=== PATIENT | female | born 1960 | race Hispanic/Latino ===

== ENCOUNTER 2017-04-18 14:15 | Emergency (ER) | payer BC ==
[2017-04-18 14:44] VITALS: BP 105/79; PULSE 65; RESP 16; TEMP 96.9; O2SAT 100
[2017-04-18] MEDS ORDERED: Oxycodone/Acetaminophen 5/325 mg Tab PO STA (15:00)
[2017-04-18] MEDS ORDERED: Oxycodone/Acetaminophen 5/325 mg Tab ONE (15:03)
--- NOTE | 2017-04-18 15:18 | ED PDOC ---
Upper Extremity Pain/Injury Time Seen by Provider: 04/18/17 14:45 Chief Complaint (Nursing): Upper Extremity Problem/Injury Chief Complaint (Provider): shoulder pain History Per: Patient History/Exam Limitations: no limitations Onset/Duration Of Symptoms: Days (3 days ago) Current Symptoms Are (Timing): Still Present Additional Complaint(s): 56 y/o female presents to the ED complaining of left shoulder pain, onset of 3 days ago. Patient reports that the pain worsens with movement and denies of any respective trauma that could have triggered it, chest pain, or shortness of breath. Of note, patient states that she has taken some over the counter medicines like Motrin and Aleve, but experienced no relief. PCP: Mikey Reeves Past Medical History Reviewed: Historical Data, Nursing Documentation, Vital Signs Vital Signs: Last Vital Signs Temp 96.9 F L 04/18/17 14:42 Pulse 65 04/18/17 14:42 Resp 16 04/18/17 14:42 BP 105/79 04/18/17 14:42 Pulse Ox 100 04/18/17 14:42 - Medical History PMH: Bipolar Disorder, Hypothyroidism, Migraine Denies: Chronic Kidney Disease - Surgical History Surgical History: - Family History Family History: States: Unknown Family Hx - Social History Current smoker - smoking cessation education provided: No Ex-Smoker (has not smoked in the last 12 months): No Drugs: Denies - Immunization History Hx Tetanus Toxoid Vaccination: Yes (6 years ago) Hx Influenza Vaccination: Yes (2014) Hx Pneumococcal Vaccination: No - Home Medications Home Medications: Ambulatory Orders Medication Instructions Recorded DULoxetine [Cymbalta] 60 mg PO DAILY 12/23/15 Gabapentin Enacarbil [Horizant] 300 mg PO HS 12/23/15 Lamotrigine [Lamictal] 200 mg PO DAILY 12/23/15 Levothyroxine [Synthroid] 100 mcg PO DAILY 12/23/15 Quetiapine Fumarate [Seroquel] 800 mg PO HS 12/23/15 clonazePAM [Klonopin] 1 mg PO BID 12/23/15 Levofloxacin [Levaquin] 500 mg PO DAILY #7 tablet 12/27/15 Tramadol HCl [Ultram] 50 mg PO Q6 #90 tablet 12/27/15 Ibuprofen [Motrin] 600 mg PO Q6 #20 tab 04/18/17 oxyCODONE/Acetaminophen [Percocet 1 ea PO Q6 PRN #5 tab 04/18/17 5/325 mg Tab] - Allergies Allergies/Adverse Reactions: Allergies Allergy/AdvReac Type Severity Reaction Status Date / Time Penicillins Allergy RASH Verified 04/18/17 14:41 Review of Systems ROS Statement: Except As Marked, All Systems Reviewed And Found Negative Cardiovascular: Negative for: Chest Pain Respiratory: Negative for: Shortness of Breath Musculoskeletal: Positive for: Shoulder Pain (worsens with movement) Physical Exam - Reviewed Nursing Documentation Reviewed: Yes Vital Signs Reviewed: Yes - Physical Exam Appears: Positive for: Non-toxic, No Acute Distress Head Exam: Positive for: ATRAUMATIC Skin: Positive for: Normal Color, Warm Eye Exam: Positive for: Normal appearance Cardiovascular/Chest: Positive for: Regular Rate, Rhythm. Negative for: Murmur Respiratory: Positive for: Normal Breath Sounds. Negative for: Respiratory Distress Extremity: Positive for: Tenderness (tender upon palpation to the lateral aspect of the shoulder ). Negative for: Normal ROM (hindered range of motion due to pain from adduction of the shoulder) - ECG O2 Sat by Pulse Oximetry: 100 (RA) Pulse Ox Interpretation: Normal Medical Decision Making Medical Decision Making: Time: --15:00 Impression: --56 y/o female with atraumatic shoulder pain Plan: --ECG --Toradol 30 mg IM --OxyCodone/Acetaminophen --Left Shoulder X-ray Reassess CT IMPRESSION: Small simple glenohumeral joint effusion. Mild degenerative changes with minimal joint space narrowing. If symptoms persist recommend MRI. Pt educated on results and demonstrated full understanding Pt placed in shoulder sling for comfort, RICE therapy advised and Pt reports that she will follow up with ortho at [facility] Scribe Attestation: Documented by Giovanni Schumacher acting as a scribe for MARTELL Miller. Disposition - Clinical Impression Clinical Impression: Shoulder pain, Joint effusion, DJD (degenerative joint disease) - Patient ED Disposition Is Patient to be Admitted: No - Disposition Disposition: Routine/Home Disposition Time: 19:15 Condition: STABLE Prescriptions: Ibuprofen [Motrin] 600 mg PO Q6 #20 tab oxyCODONE/Acetaminophen [Percocet 5/325 mg Tab] 1 ea PO Q6 PRN #5 tab PRN Reason: Pain, Severe (8-10) Instructions: Arthralgia (ED) Forms: [facility] (Croatian)
--- NOTE | 2017-04-18 15:38 | RAD ---
PROCEDURE: Radiographs of the Left Shoulder HISTORY: pain COMPARISON: No prior. FINDINGS: BONES: No fracture. JOINTS: Glenohumeral and acromioclavicular joints preserved. SOFT TISSUES: Normal. OTHER FINDINGS: None. IMPRESSION: No demonstrated fracture or dislocation.
--- NOTE | 2017-04-18 19:07 | CT ---
PROCEDURE: CT left shoulder HISTORY: severe pain COMPARISON: TECHNIQUE: 2.5 mm axial acquisition and display. Coronal and sagittal reconstructions. Dose report (mGy-cm): 191.75. This CT exam was performed using one or more of the following dose reduction techniques: Automated exposure control, adjustment of the mA and/or kV according to patient size, and/or use of iterative reconstruction technique. FINDINGS: Glenohumeral degenerative changes. Preservation of the acromioclavicular joint. Moderate glenohumeral joint effusion. No scapular abnormalities identified. No visualize ribs findings. No underlying pulmonary abnormalities. IMPRESSION: No acute osseous or articular abnormalities. Glenohumeral degenerative change. Clinic humeral joint effusion. Concordant results (preliminary interpretation) provided by [facility]. Procedure Completed: 16:02 Preliminary ([facility]) Report: Dictated and Authenticated: 17:55 Final Interpretation: 19:05. April 18, 2017.
== END 2017-04-18 18:00 | disposition home or self-care (01) ==
LOC: H.ER 14:15
DX: M25.412 Effusion, left shoulder (principal); E03.9 Hypothyroidism, unspecified; F31.9 Bipolar disorder, unspecified; Z87.891 Personal history of nicotine dependence; Z88.0 Allergy status to penicillin
CPT/HCPCS: 73030; 73200; 96372; 99282; J1885

== ENCOUNTER 2017-05-09 19:15 | Emergency (ER) | payer BC ==
[2017-05-09 19:47] VITALS: BP 121/73; PULSE 63; RESP 16; TEMP 98; O2SAT 100
[2017-05-09] MEDS ORDERED: Oxycodone/Acetaminophen 5/325 mg Tab PO STA (19:58)
[2017-05-09] MEDS ORDERED: Lidocaine 5% Patch TD STA (19:58)
[2017-05-09] MEDS ORDERED: Lidocaine 5% Patch TD ONE (20:07)
[2017-05-09] MEDS ORDERED: Oxycodone/Acetaminophen 5/325 mg Tab ONE (20:09)
--- NOTE | 2017-05-09 20:24 | ED PDOC ---
Upper Extremity Pain/Injury Time Seen by Provider: 05/09/17 19:48 Chief Complaint (Nursing): Upper Extremity Problem/Injury Chief Complaint (Provider): Left Shoulder Pain History Per: Patient History/Exam Limitations: no limitations Onset/Duration Of Symptoms: Days Current Symptoms Are (Timing): Still Present Quality: "Pain" Exacerbating Factor(s): Movement Additional Complaint(s): 56 year old female presents to the ED complaining of left shoulder pain. The patient states that 2 weeks ago she injured her left shoulder while walking her dog. She reports that she was seen in this ED and told she might have a rotator cuff injury. The patient states that she is scheduled to see Dr. Duggan this week and is also schedules to have an MRI. She reports that she has been taking motrin and percocet that she was prescribed but states she does not have any more. Patient is requesting medication while in the ED. Denies chest pain, shortness of breath, numbness and tingling. PMD: Non CPH Provider Past Medical History Reviewed: Historical Data, Nursing Documentation, Vital Signs Vital Signs: Last Vital Signs Temp 98.0 F 05/09/17 19:46 Pulse 63 05/09/17 19:46 Resp 16 05/09/17 19:46 BP 121/73 05/09/17 19:46 Pulse Ox 100 05/09/17 19:46 - Medical History PMH: Bipolar Disorder, Hypothyroidism, Migraine Denies: Chronic Kidney Disease - Surgical History Surgical History: - Family History Family History: States: Unknown Family Hx - Social History Current smoker - smoking cessation education provided: No Ex-Smoker (has not smoked in the last 12 months): No Alcohol: None Drugs: Denies - Immunization History Hx Tetanus Toxoid Vaccination: Yes (6 years ago) Hx Influenza Vaccination: Yes (2014) Hx Pneumococcal Vaccination: No - Home Medications Home Medications: Ambulatory Orders Medication Instructions Recorded DULoxetine [Cymbalta] 60 mg PO DAILY 12/23/15 Gabapentin Enacarbil [Horizant] 300 mg PO HS 12/23/15 Lamotrigine [Lamictal] 200 mg PO DAILY 12/23/15 Levothyroxine [Synthroid] 100 mcg PO DAILY 12/23/15 Quetiapine Fumarate [Seroquel] 800 mg PO HS 12/23/15 clonazePAM [Klonopin] 1 mg PO BID 12/23/15 Levofloxacin [Levaquin] 500 mg PO DAILY #7 tablet 12/27/15 Tramadol HCl [Ultram] 50 mg PO Q6 #90 tablet 12/27/15 Ibuprofen [Motrin] 600 mg PO Q6 #20 tab 04/18/17 oxyCODONE/Acetaminophen [Percocet 1 ea PO Q6 PRN #5 tab 04/18/17 5/325 mg Tab] Lidocaine 5% [Lidoderm] 1 ea TD DAILY PRN #10 patch 05/09/17 Meloxicam [Mobic] 7.5 mg PO DAILY PRN #15 tab 05/09/17 - Allergies Allergies/Adverse Reactions: Allergies Allergy/AdvReac Type Severity Reaction Status Date / Time Penicillins Allergy RASH Verified 04/18/17 14:41 Review of Systems Cardiovascular: Negative for: Chest Pain Respiratory: Negative for: Shortness of Breath Musculoskeletal: Positive for: Shoulder Pain (left) Neurological: Negative for: Numbness (no numbness or tingling) Physical Exam - Reviewed Nursing Documentation Reviewed: Yes Vital Signs Reviewed: Yes - Physical Exam Appears: Positive for: Non-toxic, No Acute Distress Skin: Positive for: Normal Color, Warm, Dry. Negative for: Rash Pulses-Radial (L): 2+ Pulses-Radial (R): 2+ Extremity: Positive for: Tenderness (mild tenderness to left shoulder), Capillary Refill (less than 2 seconds). Negative for: Normal ROM (limited range of motion of left shoulder secondary to pain), Deformity (no deformity to left shoulder) Neurologic/Psych: Positive for: Alert, Oriented, Gait - ECG O2 Sat by Pulse Oximetry: 100 (RA) Pulse Ox Interpretation: Normal Medical Decision Making Medical Decision Makin Initial Impression 56 year old male presenting with left shoulder pain Initial Plan: * Toradol 30mg IM * Lidocaine 5% 1 ea * 5/325mg 1 tab PO * Reevaluation Documented by Cindy Jensen acting as a scribe for Adryan Pormentilla, PA-C. All medical record entries made by the Scribe were at my direction and personally dictated by me. I have reviewed the chart and agree that the record accurately reflects my personal performance of the history, physical exam, medical decision making, and the department course for this patient. I have also personally directed, reviewed, and agree with the discharge instructions and disposition. Disposition - Clinical Impression Clinical Impression: Shoulder injury - Patient ED Disposition Is Patient to be Admitted: No - Disposition Referrals: Dillon Koch MD [Staff Provider] - Disposition: Routine/Home Disposition Time: 19:50 Condition: STABLE Additional Instructions: Follow up with Dr. Koch as scheduled without fail. Prescriptions: Lidocaine 5% [Lidoderm] 1 ea TD DAILY PRN #10 patch PRN Reason: pain Meloxicam [Mobic] 7.5 mg PO DAILY PRN #15 tab PRN Reason: Pain Instructions: Shoulder Pain (ED) Forms: [facility] (Dutch) Print Language: INDONESIAN
== END 2017-05-09 21:37 | disposition home or self-care (01) ==
LOC: H.ER 19:15
DX: M25.512 Pain in left shoulder (principal); E03.9 Hypothyroidism, unspecified; F31.9 Bipolar disorder, unspecified; Z88.0 Allergy status to penicillin
CPT/HCPCS: 96372; 99282; J1885